=== PATIENT | female | born 1950 | race Caucasian/White ===

== ENCOUNTER 2022-12-05 15:01 | Emergency (ER) | payer OTHER, MEDICAID ==
[~2022-12-05] VITALS: Ht 165.1 cm; Wt 70.8 kg
[2022-12-05] MEDS ORDERED: ONDANSETRON HCL 4 MG/2 ML VIAL IVP ONE (15:30)
[2022-12-05] MEDS ORDERED: MORPHINE 4 MG INJ. 4 MG/ML VIAL IVP ONE ×2 (15:30→17:30)
--- NOTE | 2022-12-05 15:38 | NUR ---
PT TO CT SCAN WITH AMBULANCE CREW
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
[2022-12-05 15:41] VITALS: BP_SYST 131; PULSE 113; RESP 16; TEMP 98.8; O2SAT 97
[2022-12-05] MEDS ORDERED: iohexoL 350 mgI/mL, 100 ML INFUS..BTL IV ONE (15:44)
[2022-12-05] MEDS ORDERED: NS 500 ML IV ONE (15:45)
--- NOTE | 2022-12-05 15:45 | NUR ---
ER at bedside examining patient.
[2022-12-05 15:55] LABS: ANION GAP 7 (5-15); CALCIUM 8.3 mg/dL (8.4-11.0); CHLORIDE 103 mmol/L (98-107); CREATININE 0.75 mg/dL (0.55-1.30); GLUCOSE 342 mg/dL (74-106); UREA NITROGEN, BLOOD 15 mg/dL (8-21)
[2022-12-05 15:58] LABS: BASOPHILS % (AUTO) 0.3 % (0.0-2.0); EOSINOPHILS % (AUTO) 0.8 % (0.0-4.0); HEMATOCRIT 30.7 % (36-48); LYMPHOCYTES # (AUTO) 1.1 K/uL (1.0-5.5); LYMPHOCYTES % (AUTO) 28.4 % (20.5-51.5); MEAN CORPUSCULAR HEMOGLOBIN 29 pg (27-31); MEAN CORPUSCULAR HGB CONC 33 % (32-36); MEAN CORPUSCULAR VOLUME 90 fL (79.0-98.0); MONOCYTES # (AUTO) 0.2 K/uL (0.0-1.0); MONOCYTES % (AUTO) 4.5 % (1.7-9.3); NEUTROPHILS # (AUTO) 2.6 K/uL (1.8-7.7); RED BLOOD CELL COUNT(AUTO) 3.41 MIL/uL (4.2-6.2); RED CELL DISTRIBUTION WIDTH 21.7 % (9.0-15.0); WHITE BLOOD COUNT (AUTO) 3.9 K/uL (4.8-10.8)
--- NOTE | 2022-12-05 16:00 | NUR ---
Placed in room 06 . Placed on conveyor monitor, blood pressure machine and pulse oximeter. To gown for exam. Side rails up. Report given to YANY KNAPP.
[2022-12-05 16:02] LABS: ALANINE AMINOTRANSFERASE 32 U/L (12-78); ASPARTATE AMINOTRANSFERASE 50 U/L (10-37); LIPASE 160 U/L (73-393); TOTAL BILIRUBIN 0.8 mg/dL (0.0-1.0)
[2022-12-05 16:04] LABS: ALCOHOL, BLOOD < 3 mg/dL (<10); GFR AFRICAN AMERICAN 98 mL/min (>90)
[2022-12-05 16:21] LABS: PLATELET COUNT (AUTO) 48 K/uL (130-430)
[2022-12-05 16:45] LABS: INR 1.2 (0.8-1.2)
[2022-12-05] MEDS ORDERED: fentaNYL CITRATE/PF 100 MCG/2 ML AMP IVP ONE (18:00)
[2022-12-05] MEDS ORDERED: CYCL10TA24 PO (18:30)
[2022-12-05] MEDS ORDERED: OXYC10TA56 PO ×2 (18:30)
[2022-12-05] MEDS ORDERED: LIDOINT TP (18:30)
[2022-12-05] MEDS ORDERED: OXYIR5 PO (18:35)
--- NOTE | 2022-12-05 18:53 | NUR ---
Patient given written and verbal discharge instructions and verbalizes understanding. ER MD discussed with patient the results and treatment provided. Patient in stable condition. ID arm band removed. Rx of FLEXERIL, LIDOCAINE, OXYCONTIN given. Patient educated on pain management and to follow up with PMD. Opportunity for questions provided and answered. Medication side effect fact sheet provided.
[2022-12-05 18:56] VITALS: BP_SYST 131; PULSE 113; RESP 16; TEMP 98.8; O2SAT 97
== END 2022-12-05 18:56 | disposition home or self-care (01) ==
LOC: SED 15:01
DX: S13.4XXA Sprain of ligaments of cervical spine, initial encounter (principal); S80.02XA Contusion of left knee, initial encounter; R07.89 Other chest pain; D69.6 Thrombocytopenia, unspecified; Z87.19 Personal history of other diseases of the digestive system; Z79.899 Other long term (current) drug therapy; V49.50XA Passenger injured in collision with unspecified motor vehicles in traffic accident, initial encounter; Y93.89 Activity, other specified; Y92.89 Other specified places as the place of occurrence of the external cause; Y99.8 Other external cause status
CPT/HCPCS: 99285; 70450; 96374; 96375; 96361; 80053; 83690; 85025; 85610; 85730; 84484; 36415; 93005; 73100; 73564; 71260; 72125; 74177; 76376; G0482; Q9967; J2405; J3010; J2270; J7040; J7030